=== PATIENT | male | born 1955 | race Caucasian/White ===

== ENCOUNTER 2017-04-28 12:14 | Emergency (ER) | payer MEDICAID, OTHER ==
[~2017-04-28] VITALS: Ht 172.7 cm; Wt 89.0 kg
[~2017-04-28 12:14] MED LIST: ALBU18HF INH; AMLO10TA2 PO; AMOX-291 PO; AMOX1TAB64 PO; ASPI-496 PO; BENA20TA2 PO; BENA40TA2 PO; CANA100T PO; CETI10TA32 PO; CHLO25TA PO; GLIM4TAB2 PO; HYDR-3237 PO; METH5POW16 PO; METO-93 PO; PRAV20TA2 PO; PRAV40TA PO; PRAZ1CAP2 PO; SERT25TA PO; SITA1TAB PO; TICA90TA PO
[2017-04-28] MEDS ORDERED: BENA40TA2 PO (12:32)
[2017-04-28] MEDS ORDERED: CLOP75TA PO (12:32)
[2017-04-28] MEDS ORDERED: SITA1TAB5 PO (12:38)
[2017-04-28] MEDS ORDERED: ATOR40TA78 PO (12:38)
[2017-04-28] MEDS ORDERED: SERT100T5 PO (12:38)
[2017-04-28] MEDS ORDERED: DIVA250T14 PO (12:38)
[2017-04-28] MEDS ORDERED: GEMF600T3 PO (12:38)
[2017-04-28] MEDS ORDERED: BUPR200T PO (12:38)
[2017-04-28] MEDS ORDERED: INSU100V13 SQ (12:38)
[2017-04-28 13:44] LABS: HEMATOCRIT 46.4 % (39.2-51.8); HEMOGLOBIN 15.6 g/dL (13.7-18.0); WHITE BLOOD COUNT 9.8 x10^3/uL (3.4-10)
[2017-04-28 13:55] LABS: ASPARTATE AMINO TRANSFERASE 12 U/L (15-37); BLOOD UREA NITROGEN 19 mg/dL (7-18)
[2017-04-28 14:00] LABS: IS PT STATUS REG ER OR PRE ER? YES
[2017-04-28 15:42] VITALS: BP 158/91
[2017-04-30] MEDS ORDERED: AMLO5TAB2 PO (21:49)
== END 2017-04-28 16:12 | disposition home or self-care (01) ==
LOC: ED 16:00
DX: R07.2 Precordial pain (principal); E11.65 Type 2 diabetes mellitus with hyperglycemia; I10 Essential (primary) hypertension; E78.5 Hyperlipidemia, unspecified
CPT/HCPCS: 36415; 71010; 80053; 81003; 84484; 85025; 93005; 99285

== ENCOUNTER 2017-05-14 18:58 | Emergency (ER) | payer OTHER ==
[~2017-05-14] VITALS: Ht 172.7 cm; Wt 89.7 kg
[~2017-05-14 18:58] MED LIST changes: +AMLO5TAB2 PO; +ATOR40TA78 PO; +BUPR200T PO; +CLOP75TA PO; +DIVA250T14 PO; +GEMF600T3 PO; +INSU100V13 SQ; +SERT100T5 PO; +SITA1TAB5 PO
[2017-05-14] MEDS ORDERED: SODIUM CHLORIDE FLUSH 10ML SYR IVF ONE (20:00)
[2017-05-14] MEDS ORDERED: SODIUM CHLORIDE 0.9% 1,000ML IVBOLUS ONE (20:00)
[2017-05-14 20:31] LABS: HEMATOCRIT 43.1 % (39.2-51.8); HEMOGLOBIN 14.7 g/dL (13.7-18.0); WHITE BLOOD COUNT 12.3 x10^3/uL (3.4-10)
[2017-05-14 20:42] LABS: ASPARTATE AMINO TRANSFERASE 13 U/L (15-37); BLOOD UREA NITROGEN 24 mg/dL (7-18)
[2017-05-14] MEDS ORDERED: OMNIPAQUE 350 MG/ML, 100ML BOTTLE ONE (21:00)
[2017-05-14 23:03] VITALS: BP 142/89
== END 2017-05-14 23:04 | disposition home or self-care (01) ==
LOC: ED 19:48
DX: R10.32 Left lower quadrant pain (principal); R10.33 Periumbilical pain; E11.65 Type 2 diabetes mellitus with hyperglycemia; I10 Essential (primary) hypertension; E78.5 Hyperlipidemia, unspecified
CPT/HCPCS: 36415; 71010; 74177; 80053; 81003; 83690; 85025; 93005; 96360; 99285; J7030; Q9967

== ENCOUNTER 2017-05-16 14:31 | Observation (INO) | payer OTHER ==
[~2017-05-16] VITALS: Ht 172.7 cm; Wt 85.0 kg
[2017-05-16] MEDS ORDERED: SODIUM CHLORIDE FLUSH 10ML SYR IVF ONE (15:00)
[2017-05-16] MEDS ORDERED: ASPIRIN 81 MG TABLET CHEW PO ONE (15:00)
[2017-05-16] MEDS ORDERED: SODIUM CHLORIDE 0.9% 1,000ML IVBOLUS ONE (15:00)
[2017-05-16] MEDS ORDERED: ASPIRIN 81 MG TABLET CHEW ONE (15:07)
[2017-05-16 15:12] LABS: HEMATOCRIT 45.6 % (39.2-51.8); HEMOGLOBIN 15.3 g/dL (13.7-18.0); WHITE BLOOD COUNT 10.8 x10^3/uL (3.4-10)
[2017-05-16 15:21] LABS: BLOOD UREA NITROGEN 21 mg/dL (7-18)
[2017-05-16 15:27] LABS: IS PT STATUS REG ER OR PRE ER? YES
[2017-05-16] MEDS ORDERED: TAMS-11 PO (15:49)
[2017-05-16] MEDS ORDERED: ACETAMINOPHEN 325 MG TABLET PO PRN (16:30)
[2017-05-16] MEDS ORDERED: morphine SULFATE 10 MG/ML, 1ML IVPush PRN (16:30)
[2017-05-16] MEDS ORDERED: ONDANSETRON 2MG/ML, 2ML IVPush PRN (16:30)
[2017-05-16 17:46] VITALS: BP 125/75
[2017-05-16 19:00] VITALS: BP 138/76
[2017-05-16 19:21] LABS: IS PT STATUS REG ER OR PRE ER? NO
[2017-05-17 01:29] LABS: IS PT STATUS REG ER OR PRE ER? NO
[2017-05-17 02:00] VITALS: BP 144/84
[2017-05-17] MEDS ORDERED: MAGNESIUM SULFATE PMX 2GM/50ML 50 ML IV ONE (06:30)
[2017-05-17 07:21] VITALS: BP 153/84
== END 2017-05-17 13:46 | disposition home or self-care (01) ==
LOC: ED 15:35 → EDIP 15:57 → INTOOBSV 15:57 → 5SO 17:13 → DCLOUNGE 05-17 13:41
PROVIDERS: ADMIT Hospitalist; ATTEND Hospitalist
DX: R53.81 Other malaise (principal); R55 Syncope and collapse; M54.2 Cervicalgia; F31.9 Bipolar disorder, unspecified; E11.9 Type 2 diabetes mellitus without complications; I10 Essential (primary) hypertension; I25.10 Atherosclerotic heart disease of native coronary artery without angina pectoris; E78.5 Hyperlipidemia, unspecified; F41.1 Generalized anxiety disorder; K27.9 Peptic ulcer, site unspecified, unspecified as acute or chronic, without hemorrhage or perforation; Z98.1 Arthrodesis status; Z90.49 Acquired absence of other specified parts of digestive tract
CPT/HCPCS: 36415; 70360; 70450; 71010; 80048; 82040; 82533; 83735; 84443; 84484; 85025; 93005; 96361; 96365; 96366; 99285; G0378; J3475; J7030